=== PATIENT | male | born 1995 | race Caucasian/White ===

== ENCOUNTER 2018-12-24 04:48 | Emergency (ER) | payer BC ==
[~2018-12-24] VITALS: Ht 165.1 cm; Wt 97.1 kg
[2018-12-24] MEDS ORDERED: NS 1,000 ML IV ONE (05:15)
[2018-12-24 05:27] LABS: BASO # 0.1 10^3/uL (0.0-0.2); BASO % 0.6 % (0.0-1.0); EOS # 0.2 10^3/uL (0.0-0.50); HEMATOCRIT 44.7 % (42.0-52.0); HEMOGLOBIN 14.8 g/dl (13.5-17.5); LYMPH # 3.7 10^3/uL (1.5-6.5); LYMPH % 23.6 % (24.0-44.0); MEAN CORPUSCULAR HEMOGLOBIN 28.9 pg (27.0-33.0); MEAN CORPUSCULAR HGB CONC 33.1 g/dl (32.0-36.5); MEAN CORPUSCULAR VOLUME 87.3 fl (80.0-96.0); MONO # 1.4 10^3/uL (0.0-0.8); MONO % 8.7 % (0.0-5.0); NEUTROPHILS # 10.2 10^3/uL (1.8-7.7); NEUTROPHILS % 65.7 % (36.0-66.0); PLATELET COUNT, AUTOMATED 308 10^3/uL (150-450); RED BLOOD COUNT 5.12 10^6/uL (4.30-6.10); WHITE BLOOD COUNT 15.6 10^3/uL (4.0-10.0)
[2018-12-24 05:58] LABS: ALBUMIN 4.2 GM/DL (3.2-5.2); ALT/SGPT 60 U/L (12-78); BILIRUBIN,DIRECT < 0.1 MG/DL (0.0-0.2); BILIRUBIN,TOTAL 0.4 MG/DL (0.2-1.0); BLOOD UREA NITROGEN 15 MG/DL (7-18); CALCIUM LEVEL 9.3 MG/DL (8.5-10.1); CARBON DIOXIDE LEVEL 30 MEQ/L (21-32); CHLORIDE LEVEL 104 MEQ/L (98-107); CREATININE FOR GFR 1.04 MG/DL (0.70-1.30); ETHYL ALCOHOL (ETHANOL) < 0.003 % (0.000-0.010); GLOMERULAR FILTRATION RATE > 60.0 (>60); GLUCOSE, FASTING 93 MG/DL (70-100); LIPASE 177 U/L (73-393); SODIUM LEVEL 140 MEQ/L (136-145); TOTAL PROTEIN 7.7 GM/DL (6.4-8.2)
--- NOTE | 2018-12-24 06:23 | REPVR ---
EXAM: CT Abdomen and Pelvis Without Contrast EXAM DATE/TIME: 12/24/2018 5:01 AM CLINICAL HISTORY: 23 years old, male; Pain; Abdominal pain; Localized; Right; Additional info: R colic TECHNIQUE: Axial computed tomography images of the abdomen and pelvis without contrast. All CT scans at this facility use at least one of these dose optimization techniques: automated exposure control; mA and/or kV adjustment per patient size (includes targeted exams where dose is matched to clinical indication); or iterative reconstruction. Coronal and sagittal reformatted images were created and reviewed. COMPARISON: No relevant prior studies available. FINDINGS: Lower thorax: 3 mm subpleural nodule in the right middle lobe anteriorly. ABDOMEN: Liver: Normal. No mass. Gallbladder and bile ducts: Normal. No calcified stones. No ductal dilation. Pancreas: Normal. No ductal dilation. Spleen: Normal. No splenomegaly. Adrenals: Normal. No mass. Kidneys and ureters: Normal. No hydronephrosis. Stomach and bowel: Normal. No obstruction. No mucosal thickening. Appendix: The appendix measures 8 mm with question of slight wall thickening. There is question of slight adjacent induration. PELVIS: Bladder: Unremarkable as visualized. Reproductive: Unremarkable as visualized. ABDOMEN and PELVIS: Intraperitoneal space: Normal. No free air. No significant fluid collection. Bones/joints: Bilateral spondylolysis of L5 with slight anterolisthesis. Soft tissues: Unremarkable. Vasculature: Normal. No abdominal aortic aneurysm. Lymph nodes: Normal. No enlarged lymph nodes. IMPRESSION: 1. Bilateral spondylolysis of L5 with slight anterolisthesis. 2. Borderline enlarged appendix with question of slight wall thickening and adjacent induration. Borderline or early appendicitis is not excluded. 3. Otherwise negative CT abdomen/pelvis. No renal or ureteral calculi are evident and there is no evidence of obstructive uropathy. Electronically signed by: Yoel Dodd On 12/24/2018 06:23:01 AM
[2018-12-24 06:53] LABS: APPEARANCE, URINE CLEAR (CLEAR); BACTERIA, URINE AUTO NEGATIVE (NEGATIVE); BILIRUBIN, URINE AUTO NEGATIVE (NEGATIVE); BLOOD, URINE BLOOD NEGATIVE (NEGATIVE); COLOR, URINE STRAW (YELLOW); GLUCOSE, URINE (UA) AUTO NEGATIVE (NEGATIVE); KETONE, URINE AUTO NEGATIVE (NEGATIVE); LEUKOCYTE ESTERASE, URINE AUTO NEGATIVE (NEGATIVE); NITRITE, URINE AUTO NEGATIVE (NEGATIVE); PROTEIN, URINE AUTO NEGATIVE (NEGATIVE); RBC, URINE AUTO 0 /HPF (0-3); SPECIFIC GRAVITY URINE AUTO 1.016 (1.002-1.035); SQUAMOUS EPITHELIAL CELL UR AU 0 /HPF (0-6); UROBILINOGEN, URINE AUTO 0.2 mg/dL (0.0-2.0); WBC, URINE AUTO 3 /HPF (0-3)
[2018-12-24] MEDS ORDERED: NS 1,000 ML IV SCH (10:00)
[2018-12-24] MEDS ORDERED: PIPERACILLIN/TAZOBACTAM SOD 3.375 GM in D5W MINI-BAG PLUS 50 ML IV ONE (10:00)
[2018-12-24 12:00] VITALS: BP 131/74
--- NOTE | 2018-12-24 23:02 | ER ---
DATE OF CONSULTATION: 12/24/2018 REASON FOR CONSULTATION: Possible appendicitis. HISTORY OF PRESENT ILLNESS: The patient is a pleasant 23-year-old man who had presented to the emergency department at approximately 4:45 in the morning of December 24, 2018 complaining of some abdominal pain and distension. The patient reported that he had generally been feeling well on December 23, 2018. He had some dinner at approximately 6:00 p.m.. This consisted of some noodles and chicken and potatoes. He does admit that he may have overeaten a bit. He also apparently had been drinking some alcoholic beverages during the day on December 23, 2018. He apparently noted the onset of some discomfort in the upper abdomen. This started about midnight. He described a continuous sharp pain in the right subcostal area. He denied any nausea or vomiting. He could not find a comfortable spot or position to lie. He apparently had tried chewing some david and using a heating pad or a shower. He did not find relief and presented to the emergency department. He does report having had one prior episode perhaps 2-3 months ago, which lasted for a couple of hours. That responded to drinking some water and chewing some david. He reports no prior abdominal surgery. In the emergency department, he underwent evaluation with some laboratory studies, which showed a slight elevation of his white blood cell count to 16,000, though his differential showed neutrophils of 66%, which is normal. A CT scan of the abdomen and pelvis was obtained, which revealed an appendix which was seen well low in the right lower quadrant. The radiologist reported that this measured 8 mm in diameter with a question of slight wall thickening and a question of some slight adjacent induration. The radiology impression was that borderline or early appendicitis is not excluded. Because of this, I was consulted to evaluate the patient. ALLERGIES: The patient reports no known allergies to medications. MEDICATIONS: He is not on any regular or prescription medications. SURGICAL HISTORY: The patient reports no prior surgery. MEDICAL HISTORY: Medical history is negative. FAMILY HISTORY: Family history is really noncontributory. 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 REVIEW OF SYSTEMS: Reveals no history of chest pain, palpitations or other cardiac symptoms. He has no cough, wheezing or sputum production. He denies any history of diabetes or thyroid issues. He has no history of deep vein thrombosis (DVT) or pulmonary embolus. He has had no history of jaundice, hepatitis or pancreatitis. He denies any rectal bleeding. He has no urinary issues. There are no orthopedic problems. He has no history of seizures or stroke, or chronic severe headaches. Remainder of the review of systems is unremarkable. PHYSICAL EXAMINATION: The patient's most recent vital signs show a temperature of 98.5, pulse 103, respirations 22, and blood pressure of 147/89. Room air oxygen saturation is normal. Patient is alert and oriented. He appears fairly comfortable and reports that his discomfort is diminished quite a bit. Skin is warm and dry. Sclerae are anicteric. Neck is supple without mass. Heart exam shows a regular rate and rhythm. Lungs are clear to auscultation bilaterally. The abdomen is mildly obese. He has bowel sounds present in all four quadrants. He has no tenderness to percussion and no tympany to percussion. The abdomen is soft throughout. On palpation, he has some very mild direct tenderness in the right subcostal area about at the midclavicular line. There is no mass appreciated. There is no rebound or guarding. The remainder of the abdomen is also soft and nontender. There is no evident hernia. He has palpable dorsalis pedis and radial pulses. Laboratory studies from 5 o'clock in the morning showed a white count of 16,000 with a hemoglobin of 15, hematocrit of 45 and platelet count of 308,000. Differential count showed 66% neutrophils, 24% lymphocytes and 9% monocytes. His chemistry profile showed normal electrolytes, BUN and creatinine and a glucose of 93. Liver function tests are normal as is the lipase at 177. He had an ethyl alcohol level of less than 0.003. Urinalysis was not suggestive of an infection. His CT scan I reviewed personally. The gallbladder appears somewhat distended. There are no definite stones seen. The appendix is coiled just inferior and lateral to the cecum. It is well seen. There appears to be some air still within the more distal portion of the appendix. I do not appreciate any significant periappendiceal inflammation. I would agree that the appendix appears to be approximately 8 mm in maximal diameter. There is no other evidence for inflammation within the abdomen. There is no free fluid and certainly no free air. IMPRESSION: The patient presented to the hospital with approximately 4-5 hours of abdominal pain. The patient reports this is now largely resolved. He did not have any nausea or vomiting. He reports one prior episode of similar pain a few months ago. His appendix looked slightly enlarged on his CT scan, but he has absolutely no tenderness in the right lower quadrant at the location of the appendix. He has had some minimal tenderness in the right subcostal area, and I do note that the gallbladder is somewhat distended on his CT scan. I would note that in some respects his symptoms are more typical for biliary colic than they are for appendicitis. RECOMMENDATIONS: I discussed with the patient the options for further evaluation and treatment. I think it would be very reasonable for him to have a gallbladder ultrasound. I do not believe he needs to stay here in the emergency room to have that done before he goes home. After talking with him, he said that he would be willing to follow up with his primary physician in [place]. Therefore, I think an outpatient gallbladder ultrasound would be reasonable to look for evidence of gallstones. In the event that he has other attacks, this would be very valuable information. He does not need to follow up with me unless the ultrasound does confirm cholelithiasis. He should certainly return to the emergency department as needed for any problems.
== END 2018-12-24 12:02 | disposition home or self-care (01) ==
LOC: M ED 04:48
DX: K38.8 Other specified diseases of appendix (principal); K82.8 Other specified diseases of gallbladder; R10.9 Unspecified abdominal pain
CPT/HCPCS: 74176; 80048; 80076; 81001; 83690; 85025; 87086; 96365; 96366; 99284; G0480; J2543